=== PATIENT | female | born 1965 | race Caucasian/White ===

== ENCOUNTER 2016-10-31 21:27 | Emergency (ER) | payer MEDICARE, MEDICAID ==
--- NOTE | 2016-11-04 13:09 | ER ---
ADMIT: 10/31/2016 RM/LOC: ER [facility] MR#: [id number] [facility]#: [id number] [address] [facility] [address] [place] [id number] LEONARDA RAUSCH [address] [place] [address] Emergency Room Report SEX: F AGE: 51 : 1965 DATE: 10/31/2016 CHIEF COMPLAINT: Skin rash. HISTORY OF PRESENT ILLNESS: This is a 51-year-old female, who presents via EMS with complaints of a skin rash. States she did have enough money to afford a cab, so she called EMS. States she believes she is having reaction to one of her psych medications. States she had a generalized itchy rash all about her body for the past day. She is having difficulty breathing and pain everywhere. PAST MEDICAL HISTORY: Bipolar. COURSE IN THE EMERGENCY ROOM: The patient was seen and examined. PHYSICAL EXAMINATION: GENERAL: Afebrile and nontoxic. She is anxious. She is in a mild amount of distress. SKIN: Warm and dry. Normal color. There is no rash and no erythema. EXTREMITIES: Nontender. No pedal edema. HEENT: Eyes are equal and reactive. No pharyngeal erythema or swelling. NECK: Soft and supple. No lymphadenopathy. She looks past midline without difficulty. RESPIRATORY: No wheezes, rhonchi, or rales. HEART: Sounds are equal bilaterally. Heart is regular. ABDOMEN: Soft and nontender. NEUROPSYCH: She is anxious. She is demanding repeatedly return to the room to answer her questions after I thoroughly explained things. I did give her 25 of Benadryl IM as well as Motrin 600 mg p.o. prior to discharge. IMPRESSION: Pruritus. DISPOSITION: The patient is discharged home. Continue home medications. Return with worsening signs. Follow up with Dr. Mast as needed. Tylenol or Motrin as needed for pain. Return home and rest. Benadryl as needed. Questions sought and answered to the best of my ability and to the patient's satisfaction. Discharged in stable condition. RU Fairchild / Attila Marinelli MD / zulma JOB #: [id number] CC: Attila Marinelli MD, Attending Physician Case Mast MD, Family Physician
[2016-12-22] MEDS ORDERED: ANAFRANIL25 MG PO (13:49)
[2016-12-22] MEDS ORDERED: KLONOPIN DPS0.5 MG PO (13:50)
[2016-12-22] MEDS ORDERED: VITAMIN B-12500 MCG PO (13:50)
[2016-12-22] MEDS ORDERED: CYMBALTA60 MG PO (13:50)
[2016-12-22] MEDS ORDERED: COGENTIN DPS0.5 MG PO (13:50)
[2016-12-22] MEDS ORDERED: CYMBALTA30 MG PO (13:51)
[2016-12-22] MEDS ORDERED: DITROPAN XL15 MG PO (13:51)
[2016-12-22] MEDS ORDERED: ELIQUIS5 MG PO (13:51)
[2016-12-22] MEDS ORDERED: ENTOCORT EC DPS3 MG PO (13:51)
[2016-12-22] MEDS ORDERED: FIBER500 MG PO (13:52)
[2016-12-22] MEDS ORDERED: [UNRECOGNIZED DRUG - OTHER] TP (13:52)
[2016-12-22] MEDS ORDERED: PRILOSEC DPS20 MG PO (13:53)
[2016-12-22] MEDS ORDERED: PERIDEX15 ML PO (13:53)
[2016-12-22] MEDS ORDERED: THERA-M TABLET1 EACH PO (13:54)
[2016-12-22] MEDS ORDERED: TYLENOL EXTRA500 M1 PO (13:55)
[2016-12-22] MEDS ORDERED: MOBIC15 MG PO (13:55)
[2016-12-22] MEDS ORDERED: TOPAMAX100 MG PO (13:55)
== END 2016-10-31 21:53 | disposition home or self-care (01) ==
LOC: ER 21:27
DX: L29.9 Pruritus, unspecified (principal); E11.9 Type 2 diabetes mellitus without complications; F31.9 Bipolar disorder, unspecified; Z79.899 Other long term (current) drug therapy